=== PATIENT | male | born 1990 | race Caucasian/White ===

== ENCOUNTER 2020-11-20 01:49 | Emergency (ER) | payer OTHER ==
[2020-11-20] MEDS ORDERED: Acetaminophen/HYDROcodone 325-5 MG Tab PO ONE (02:03)
[2020-11-20] MEDS ORDERED: Ketorolac 60 MG/2 ML SDV IM ONE (02:03)
[2020-11-20] MEDS ORDERED: Amoxicillin/Clavulanate K 875-125 MG Tab PO ONE (02:18)
--- NOTE | 2020-11-20 02:21 | EDM.PDOC ---
ED HPI GENERAL MEDICAL PROBLEM - General Chief Complaint: ENT Problem Stated Complaint: ABCESS; SWOLLEN LEFT SIDE OF FACE Time Seen by Provider: 11/20/20 02:10 Source of Information: Reports: Patient History Limitations: Reports: No Limitations - History of Present Illness INITIAL COMMENTS - FREE TEXT/NARRATIVE: Patient presented to the ED because of dental pain and swelling of he left side of his face for a couple of days. left facial/dental Pain Score (Numeric/FACES): 9 - Related Data Allergies Allergy/AdvReac Type Severity Reaction Status Date / Time No Known Allergies Allergy Verified 11/20/20 02:00 Home Meds: Home Meds Amoxicillin/Clavulanate K [Augmentin 875-125 MG] 1 tab PO BID #20 tablet 11/20/20 [Rx] Clindamycin HCl 450 mg PO TID #90 capsule 11/20/20 [Rx] Ibuprofen 800 mg PO Q8H PRN #30 tablet 11/20/20 [Rx] ED ROS ENT - Review of Systems Review Of Systems: See Below Constitutional: Reports: No Symptoms HEENT: Reports: Dental Pain Respiratory: Reports: No Symptoms Cardiovascular: Reports: No Symptoms Endocrine: Reports: No Symptoms GI/Abdominal: Reports: No Symptoms : Reports: No Symptoms Musculoskeletal: Reports: No Symptoms Skin: Reports: No Symptoms, Other ED EXAM, ENT - Physical Exam Exam: See Below Exam Limited By: No Limitations General Appearance: Alert, No Apparent Distress Eye Exam: Bilateral Eye: PERRL Ears: Normal External Exam, Normal Canal, Hearing Grossly Normal Nose: Normal Inspection, Normal Mucousa, No Blood Mouth/Throat: Normal Inspection Head: Atraumatic, Normocephalic Neck: Normal Inspection, Supple, Non-Tender, Full Range of Motion Respiratory/Chest: No Respiratory Distress, Lungs Clear, Normal Breath Sounds Cardiovascular: Normal Peripheral Pulses, Regular Rate, Rhythm, No Edema Course - Vital Signs Text/Narrative:: Toradol 60 mg IM x1 [place] 5/325, 2 po x1 Augmentin 875 mg PO x1 Last Recorded V/S: Last Vital Signs Temp 37.3 C 11/20/20 02:00 Pulse 124 H 11/20/20 02:00 Resp 16 11/20/20 02:00 BP 125/92 H 11/20/20 02:00 Pulse Ox 100 11/20/20 02:00 - Orders/Labs/Meds Meds: Medications Discontinued Medications Generic Name Dose Route Start Last Admin Trade Name Augie PRN Reason Stop Dose Admin Hydrocodone Bitart/Acetaminophen 2 tab 11/20/20 02:03 11/20/20 02:09 Acetaminophen/Hydrocodone 325-5 Mg Tab PO 11/20/20 02:04 2 tab ONETIME ONE Administration Ketorolac Tromethamine 60 mg 11/20/20 02:03 11/20/20 02:08 Ketorolac 60 Mg/2 Ml Sdv IM 11/20/20 02:04 60 mg ONETIME ONE Administration Departure - Departure Time of Disposition: 02:30 Disposition: Home, Self-Care 01 Condition: Good Clinical Impression: Dental infection, Pain, dental - Discharge Information Prescriptions: Amoxicillin/Clavulanate K [Augmentin 875-125 MG] 1 tab PO BID #20 tablet Clindamycin HCl 450 mg PO TID #90 capsule Ibuprofen 800 mg PO Q8H PRN #30 tablet PRN Reason: Pain Referrals: PCP,None [Primary Care Provider] - Additional Instructions: Please read discharge instructions on dental infection and dental pain Gurgle with salt and water Take ibuprofen 800 mg with tylenol 1000 mg every 8 hours as needed for pain Augmenti 875 mg twice daily for 10 days Clindamycin 150 mg, 3 tablets or capsules 3 times daily for 10 days Follow up with your dentist this week. Sepsis Event Note (ED) - Evaluation Sepsis Screening Result: Possible Sepsis Risk - Focused Exam Vital Signs: Vital Signs Temp Pulse Resp BP Pulse Ox 11/20/20 02:00 37.3 C 124 H 16 125/92 H 100
== END 2020-11-20 02:47 | disposition home or self-care (01) ==
LOC: FB.ED 01:49
DX: K04.7 Periapical abscess without sinus (principal)
CPT/HCPCS: 96372; 99282; A9270-GY; J1885

== ENCOUNTER 2022-10-12 19:03 | Emergency (ER) | payer OTHER | END 2022-10-12 20:13 | disposition home or self-care (01) | LOC: FB.ED 19:03 | DX: S90.32XA Contusion of left foot, initial encounter (principal); W19.XXXA Unspecified fall, initial encounter | CPT/HCPCS: 73630-LT; 99000; 99282; 99283 ==